=== PATIENT | male | born 2000 | race Caucasian/White ===

== ENCOUNTER 2023-01-27 15:34 | Emergency (ER) | payer OTHER ==
[~2023-01-27] VITALS: Ht 165.1 cm; Wt 107.5 kg
[2023-01-27 15:35] VITALS: BP 134/72
[2023-01-27] MEDS ORDERED: ACETAMINOPHEN 500 MG TAB PO ONE (18:00)
[2023-01-27] MEDS ORDERED: predniSONE 20 MG TAB PO ONE (19:30)
[2023-01-27] MEDS ORDERED: PRED20TA PO (19:49)
== END 2023-01-27 20:32 | disposition home or self-care (01) ==
LOC: M ED 15:34
DX: J03.90 Acute tonsillitis, unspecified (principal); F17.210 Nicotine dependence, cigarettes, uncomplicated
CPT/HCPCS: 87486; 87581; 87633; 87798; 87880; 99282; J7512